=== PATIENT | male | born 1955 | race Caucasian/White ===

== ENCOUNTER 2019-04-28 14:42 | Outpatient (CLI) | payer OTHER ==
--- NOTE | 2019-04-28 15:00 | RAD ---
EXAM: 3 views of the left shoulder HISTORY: Shoulder pain COMPARISON: None FINDINGS: There is no evidence of acute fracture or dislocation. Moderate glenohumeral degenerative c hanges are present with joint space narrowing and osteophyte formation. No soft tissue swelling is seen. The visualized thorax is unremarkable. IMPRESSION: Moderate left shoulder osteoarthritis
== END 2019-04-28 14:43 | disposition home or self-care (01) ==
LOC: MADRAD 14:42
PROVIDERS: ATTEND Orthopaedic Surgery
DX: M19.012 Primary osteoarthritis, left shoulder (principal)